=== PATIENT | female | born 1990 | race Two or more races ===

== ENCOUNTER 2024-09-21 08:09 | Outpatient (CLI) | payer OTHER | END 2024-09-21 08:26 | disposition home or self-care (01) | LOC: PRENATAL 08:09 | PROVIDERS: ATTEND Obstetrics & Gynecology Maternal & Fetal Medicine | DX: O44.00 Complete placenta previa NOS or without hemorrhage, unspecified trimester (principal); O99.280 Endocrine, nutritional and metabolic diseases complicating pregnancy, unspecified trimester; O09.519 Supervision of elderly primigravida, unspecified trimester; Z3A.20 20 weeks gestation of pregnancy ==

== ENCOUNTER 2024-12-14 10:07 | Outpatient (CLI) | payer OTHER | END 2024-12-14 10:10 | disposition home or self-care (01) | LOC: PRENATAL 10:07 | PROVIDERS: ATTEND Obstetrics & Gynecology Maternal & Fetal Medicine | DX: O26.849 Uterine size-date discrepancy, unspecified trimester (principal); O36.8199 Decreased fetal movements, unspecified trimester, other fetus; O99.280 Endocrine, nutritional and metabolic diseases complicating pregnancy, unspecified trimester; O09.519 Supervision of elderly primigravida, unspecified trimester; O32.9XX0 Maternal care for malpresentation of fetus, unspecified, not applicable or unspecified; Z3A.32 32 weeks gestation of pregnancy ==